=== PATIENT | male | born 1960 | race Caucasian/White ===

== ENCOUNTER 2019-09-29 04:19 | Inpatient (IN) | payer OTHER ==
[~2019-09-29] VITALS: Ht 185.4 cm; Wt 120.7 kg
[2019-09-29] VITALS (18 sets, daily range): BP systolic 94–153; BP diastolic 41–72
[2019-09-29] MEDS ORDERED: COZAAR 25 MG TA25 M1 PO (04:32)
[2019-09-29] MEDS ORDERED: ZOCOR80 MG PO (04:33)
[2019-09-29] MEDS ORDERED: GLUCOPHAGE1000 MG PO (04:33)
[2019-09-29] MEDS ORDERED: OMEPRAZOLE 20 M20 M1 PO (04:34)
--- NOTE | 2019-09-29 05:15 | NUR ---
ALL SPECIMENS WALKED TO LAB
[2019-09-29 05:34] LABS: ABSOLUTE NEUTROPHILS 11.4 thou/uL (1.4-8.2); BASOPHILS 0.1 % (0.0-2.0); EOSINOPHILS 0.3 % (0.0-3.0); HEMATOCRIT 47.2 % (42.0-52.0); HEMOGLOBIN 15.3 gm/dL (14.0-18.0); LYMPHOCYTES 7.8 % (24.0-44.0); MCH 27.2 pg (26.0-34.0); MCHC 32.4 g/dL (28.0-37.0); PLATELET COUNT 319 thou/uL (150-400); POLYS 87.8 % (36.0-66.0); RBC 5.63 mil/uL (4.50-6.00); RDW 13.6 % (10.5-14.5)
[2019-09-29 05:38] LABS: CALCIUM 8.7 mg/dL (8.5-10.1); CREATININE 1.1 mg/dL (0.7-1.3); POTASSIUM 4.4 mmol/L (3.5-5.1)
[2019-09-29 05:44] LABS: ALBUMIN 3.7 g/dL (3.4-5.0); TOTAL BILIRUBIN 0.5 mg/dL (<0.1-1.0); TOTAL PROTEIN 7.2 g/dL (6.4-8.2)
--- NOTE | 2019-09-29 11:00 | NUR ---
1000ML LACTACTED RINGERS STARTED ORDERED. IV SITE WITHOUT REDNESS OR SWELLING. DENIES PAIN OR DISCOMFORT.
[2019-09-29 11:20] LABS: URINE BILIRUBIN NEGATIVE (Negative); URINE BLOOD TRACE (Negative); URINE CLARITY CLEAR; URINE COLOR YELLOW; URINE GLUCOSE-RANDOM* 3+ (Negative); URINE KETONES 2+ (Negative); URINE LEUKOCYTES-REFLEX NEGATIVE (Negative); URINE NITRITE-REFLEX NEGATIVE (Negative); URINE PROTEIN (DIPSTICK) NEGATIVE (Negative); URINE UROBILINOGEN 0.2 E.U./dl (0.2-1.0)
--- NOTE | 2019-09-29 18:18 | NUR ---
PATIENT HAD LAPAROSCOPY HERNIA REPARI WITH 5 LAP SITES. TAMIKA TRUJILLO. ADMIT TO UNIT AT 1500. A/O X4 ANXIOUS ABOUT COVID 19. TOLERATED WITH WATER. MPORPHINE FOR PAIN. DENIES N/V. OFFER 3L/NC. WILL KEEP MONITOR.
[2019-09-30 04:15] VITALS: BP 119/60
--- NOTE | 2019-09-30 04:32 | NUR ---
ASSUMED PT CARE AROUND 1899. PT HAD C/O PAIN TO ABD. PT VSS WITH NO SOA OR N/V/D. PT ON 3L NASAL CANNULA WITH C/O SOA. PT REC'D DIALYSIS AT [facility]IFT [facility] UNTIL 2314 WITH 1L REMOVED. PT C/O HEADACHE BUT HAD NO N/V/D. PAIN MEDICATION GIVEN WITH PARTIAL RELIEF. PT DID NOT REST THRU NIGHT. WILL CONTINUE TO MONITOR PT PER POC.
--- NOTE | 2019-09-30 04:40 | NUR ---
ASSUMED PT CARE AROUND 1900 PT WAS RESTING IN BED WITH C/O PAIN TO ABD. PAIN MEDICATION GIVEN WITH PARTIAL PAIN RELIEF. PT RESTED IN CHAIR AND WAS ABLE TO GAIN RELIEF WITH PAIN AND RESTED THRU NIGHT WITH MINIMAL INTERRUPTIONS. PT ABLE TO VOID IN URINAL WITH MINIMAL ASSISTANCE. PT KNOWS TO CALL PRIOR TO MOVING AND TO GET ASSISTANCE. PT HAD NO C/O SOA OR N/V/D THRU SHIFT. PT VSS AND ON 3L NASAL CANNULA. PT MED REC HAS BEEN UPDATED. PT IS AOX4. WILL CONTINUE TO MONITOR PER POC.
[2019-09-30 06:11] LABS: ABSOLUTE NEUTROPHILS 9.1 thou/uL (1.4-8.2); BASOPHILS 0.1 % (0.0-2.0); CALCIUM 8.4 mg/dL (8.5-10.1); HEMATOCRIT 39.5 % (42.0-52.0); LYMPHOCYTES 9.8 % (24.0-44.0); MCHC 32.2 g/dL (28.0-37.0); MONOCYTES 8.1 % (1.0-8.0); PLATELET COUNT 271 thou/uL (150-400); POTASSIUM 4.3 mmol/L (3.5-5.1); RBC 4.71 mil/uL (4.50-6.00); RDW 13.5 % (10.5-14.5); WBC 11.1 thou/uL (4.0-11.0)
[2019-09-30 06:31] LABS: HEMOGLOBIN 12.7 gm/dL (14.0-18.0)
[2019-09-30 08:53] VITALS: BP 138/65
[2019-09-30 15:55] VITALS: BP 133/68
--- NOTE | 2019-09-30 18:39 | NUR ---
ASSUMED PATIENT CARE AT 0700. A/0 X4. UP AMBULATED IN ROOM. PAIN MED GIVEN NEED. TOLERTAED DIET. 2L/NC. SLOWLY TOWARDS POC GOALS.
[2019-09-30 20:30] VITALS: BP 135/51
[2019-09-30 20:44] VITALS: BP 135/51
--- NOTE | 2019-10-01 04:30 | NUR ---
ASSUMED PT CARE AT AROUND 1900, PT IS A&OX4, COMPLAINS OF ABDOMINAL PAIN, PAIN MEDICATION GIVEN PRN WITH PARTIAL RELIEF, DENIES CHESP PAIN OR SOB, VSS ON 2L NC, SLEPT ON THE RECLINER THROUGH THE NIGHT, NO DISCOMFORT NOTED, WILL CONTINUE TO MONITOR
[2019-10-01 05:26] VITALS: BP 121/64
[2019-10-01 08:30] VITALS: BP 128/68
[2019-10-01 16:32] VITALS: BP 146/74
--- NOTE | 2019-10-01 19:18 | NUR ---
ASUMED PATIENT CARE AT 0700. A/O X4. UP AD LUPE. AMBULATED IN ROOM. PROGRESSING TOWARDS POC GOALS.
[2019-10-01 20:58] VITALS: BP 122/95
--- NOTE | 2019-10-01 21:29 | NUR ---
Pt alert and oriented x4 . 99.3 temp noted. Lungs diminished and unlabored while sitting up in chair. Enc. cough and deep breathe. Denied need for pain meds presently. He stated he would take before he went to bed. Abdomen is round. Bowel sounds are present but hypoactive and difficult to hear. Hernia noted. Abdominal lap sites without drainage noted. Abdominal binder is on. Legs are edematous. Will elevate on pillows as soon as he goes to bed. No s/s distress presently. He is worried about his with terminal cancer at [facility]. Emotional support provided. Will continue to monitor pt for changes.
[2019-10-01 23:30] VITALS: BP 144/73
--- NOTE | 2019-10-01 23:59 | NUR ---
VSS. T 99.4 . C/o abd pain 12/05. Medicated with 1 hydrocodone. Pt prefers to sit up in chair to sleep.
[2019-10-02 05:30] VITALS: BP 140/72
--- NOTE | 2019-10-02 07:40 | NUR ---
Pt is progressing towards d/c goals. Lungs diminished but unlabored this am. VSS . 99.3 T. BS hypoactive. He has refused anything to help him have a bm. He has refused scds. Pt is on lovenox. No c/o pain this am.
[2019-10-02 07:54] VITALS: BP 136/63
[2019-10-02 10:11] VITALS: BP 136/63
--- NOTE | 2019-10-12 08:16 | O ---
[facility] [place] [address] OPERATIVE REPORT Name: KAREEN DE GUZMAN Room #: 364-P [facility] IN M.R.#: [id number] Admission: 09/29/19 Attend Phys: Rikki Erickson MD Discharge: 10/02/19 Date of : 56 Report #: [id number] THIS REPORT FOR: cc: [facility] - Clinic physician unknown [facility] - Clinic physician unknown Andrey Sanders MD ~ CC: Rikki MANN unknown DATE OF SERVICE: 09/29/2019 PREOPERATIVE DIAGNOSIS: Incarcerated ventral hernia. POSTOPERATIVE DIAGNOSIS: Incarcerated ventral hernia. OPERATION: Laparoscopic repair of incarcerated ventral hernia with mesh. SURGEON: Andrey Sanders MD ANESTHESIA: General. ESTIMATED BLOOD LOSS: Minimal. SPECIMEN: None. DESCRIPTION OF PROCEDURE: After informed consent was obtained, the patient was brought to the operating room and placed supine. SCDs were placed and working, preoperative antibiotics were administered, general anesthesia was induced. The abdomen was prepped and draped in the usual sterile fashion. A 5 mm incision was made in the left upper quadrant. A 5 mm trocar was placed under direct vision. Pneumoperitoneum was established. Left-sided 12 mm trocar was placed under direct vision and a right-sided 5 mm trocar was placed under direct vision. He had incarcerated omentum and hernia defect in the midline. This was at the umbilicus. The defect measured approximately 6 x 8 cm. I was able to reduce all of the bowel that was in the hernia. I took the LigaSure and was able to reduce the incarcerated omentum and I was able to use the LigaSure to incise the omentum where it was stuck to the hernia sac. After this had been done, I could see the defect nicely. A 6 x 8 inch Bard 3D Echo mesh was placed. It was brought up to the abdominal wall and the green balloon was insufflated. The mesh was then tacked around the circumference of the mesh with 45 absorbable tacks. This covered the defect widely. I used a suture passer to pass the 2-0 CV-0 [place] in 4 quadrants of the mesh superiorly, inferiorly and on each side. The green balloon was then removed from the mesh and removed through the trocar. The mesh was nice and flat and covered the defect nicely. The [address] [address] OPERATIVE REPORT Name: KAREEN DE GUZMAN Room #: 364-P [facility] IN M.R.#: [id number] Admission: 09/29/19 Attend Phys: Rikki Erickson MD Discharge: 10/02/19 Date of : 56 Report #: [id number] were then removed under direct vision. The fascia at the 12 mm site was closed with a [id number] 0 Vicryl. Skin was closed with 4-0 Monocryl. Incisions were sealed with Dermabond. COMPLICATIONS: None. DISPOSITION: The patient was taken to recovery in satisfactory condition. <ELECTRONICALLY SIGNED> By: Andrey Sanders MD 10/12/19 [id number] Andrey Sanders MD /nt
== END 2019-10-02 10:39 | disposition home or self-care (01) | DRG 853 ==
LOC: ER 04:19 → EDBD 14:58 → 3W 14:58 → ICU 14:58 → 3W 15:48
PROVIDERS: Emergency Medicine; Nurse Practitioner; ADMIT Hospitalist
PROC: 0WUF4JZ Supplement Abdominal Wall with Synthetic Substitute, Percutaneous Endoscopic Approach (ICD-10-PCS; principal; 2019-09-29)
DX: A41.9 Sepsis, unspecified organism (principal); J18.9 Pneumonia, unspecified organism; K43.6 Other and unspecified ventral hernia with obstruction, without gangrene; Z79.84 Long term (current) use of oral hypoglycemic drugs; E11.9 Type 2 diabetes mellitus without complications; I10 Essential (primary) hypertension; R05 Cough; E78.5 Hyperlipidemia, unspecified; Z79.899 Other long term (current) drug therapy; Z88.1 Allergy status to other antibiotic agents; Z91.041 Radiographic dye allergy status
CPT/HCPCS: 10779; 50101; 50249; 50411; 50445; 50555; 50558; 50687; 50819; 50848; 50859; 51489; 51771; 52265; 53307; 54022; 54118; 56462; 56525; 56526; 57095; 62110; 62900